=== PATIENT | female | born 1955 | race Caucasian/White ===

== ENCOUNTER 2017-04-14 10:35 | Emergency (ER) | payer MEDICAID ==
[~2017-04-14] VITALS: Ht 160 cm; Wt 68.0 kg
[~2017-04-14 10:35] MED LIST: ALBU8.5H5 INH; ATEN100T PO; DOXY100T PO; FLUT1DIS3 INH; GABA-826 PO; HYDR25TA6 PO; LISI40TA PO; METF10002 PO; METH-356 PO; PRED10TA PO
[2017-04-14] MEDS ORDERED: IBUPROFEN 200 MG TABLET PO ONE (12:30)
[2017-04-14] MEDS ORDERED: OXYcodone/APAP 5/325MG TABLET PO ONE (12:30)
[2017-04-14] MEDS ORDERED: OXYcodone/APAP 5/325MG TABLET ONE (12:42)
[2017-04-14] MEDS ORDERED: IBUPROFEN 200 MG TABLET ONE (12:42)
[2017-04-14 12:46] VITALS: BP 152/90
== END 2017-04-14 13:01 | disposition home or self-care (01) ==
LOC: ED 12:40
DX: S83.91XA Sprain of unspecified site of right knee, initial encounter (principal); S93.401A Sprain of unspecified ligament of right ankle, initial encounter; E11.9 Type 2 diabetes mellitus without complications; I10 Essential (primary) hypertension; F17.200 Nicotine dependence, unspecified, uncomplicated; M06.9 Rheumatoid arthritis, unspecified; M79.7 Fibromyalgia; W19.XXXA Unspecified fall, initial encounter; Y93.89 Activity, other specified; Y92.89 Other specified places as the place of occurrence of the external cause; Y99.8 Other external cause status
CPT/HCPCS: 99283

== ENCOUNTER 2017-10-03 00:33 | Emergency (ER) | payer MEDICAID ==
[~2017-10-03] VITALS: Ht 160 cm; Wt 63.0 kg
[2017-10-03 01:20] LABS: BASOPHILS # (AUTO) 0.03 x10^3/uL (0-0.1); BASOPHILS % (AUTO) 0 % (0-1); EOSINOPHILS # (AUTO) 0.04 x10^3/uL (0-0.4); EOSINOPHILS % (AUTO) 1 % (1-7); LYMPHOCYTES # (AUTO) 1.73 x10^3/uL (1-3.4); LYMPHOCYTES % (AUTO) 20 % (22-44); MD NO; MEAN CORPUSCULAR HEMOGLOBIN 28.6 pg (27.0-34.8); MEAN CORPUSCULAR VOLUME 86.9 fL (80-100); MEAN PLATELET VOLUME 10.9 fL (7.4-10.4); MONOCYTES # (AUTO) 0.72 x10^3/uL (0.2-0.8); MONOCYTES % (AUTO) 9 % (2-9); NEUTROPHILS # (AUTO) 5.97 x10^3/uL (1.8-6.8); NEUTROPHILS % (AUTO) 70 % (42-75); PLATELET COUNT 151 x10^3/uL (130-400); RED BLOOD COUNT 4.67 x10^6/uL (3.82-5.3); RED CELL DISTRIBUTION WIDTH 13.7 % (9.6-15.2)
[2017-10-03] MEDS ORDERED: HYDROcodone/APAP 5/325 TABLET ONE (01:21)
[2017-10-03 01:30] LABS: ALANINE AMINOTRANSFERASE 22 U/L (12-78); ALBUMIN 2.9 g/dL (3.4-5.0); ANION GAP 8 mmol/L (5-15); CALCIUM 8.5 mg/dL (8.5-10.1); CHLORIDE 102 mmol/L (98-107); CREATININE 0.62 mg/dL (0.55-1.02)
[2017-10-03] MEDS ORDERED: HYDROcodone/APAP 5/325 TABLET PO ONE (01:30)
[2017-10-03 01:32] LABS: ALKALINE PHOSPHATASE 90 U/L (45-117); BILIRUBIN,TOTAL 0.3 mg/dL (0.2-1.0); TOTAL PROTEIN 6.9 g/dL (6.4-8.2)
[2017-10-03 02:22] VITALS: BP 144/73
== END 2017-10-03 02:23 | disposition home or self-care (01) ==
LOC: ED 02:17
DX: R00.2 Palpitations (principal); Z72.9 Problem related to lifestyle, unspecified; E11.9 Type 2 diabetes mellitus without complications; I10 Essential (primary) hypertension; Z79.84 Long term (current) use of oral hypoglycemic drugs; M06.9 Rheumatoid arthritis, unspecified; Z59.0 Homelessness
CPT/HCPCS: 36415; 71045; 80053; 85025; 93005; 99285

== ENCOUNTER 2017-11-23 20:08 | Emergency (ER) | payer MEDICAID ==
[~2017-11-23] VITALS: Ht 160 cm; Wt 61.9 kg
[2017-11-23 20:10] VITALS: BP 165/83
== END 2017-11-23 21:48 | disposition home or self-care (01) ==
LOC: ED 21:21
DX: J20.9 Acute bronchitis, unspecified (principal); I10 Essential (primary) hypertension; E11.9 Type 2 diabetes mellitus without complications; M79.7 Fibromyalgia; M06.9 Rheumatoid arthritis, unspecified; F17.210 Nicotine dependence, cigarettes, uncomplicated
CPT/HCPCS: 71046; 99284

== ENCOUNTER 2018-01-13 14:07 | Emergency (ER) | payer MEDICAID ==
[~2018-01-13] VITALS: Ht 160 cm; Wt 70.0 kg
[2018-01-13 14:08] VITALS: BP 164/94
[2018-01-13] MEDS ORDERED: FLUORESCEIN OPHTHALMIC 1 MG STRIP EACHEYE ONE (14:30)
[2018-01-13] MEDS ORDERED: PROPARACAINE OPHTH 0.5%, 15ML EACHEYE ONE (14:30)
[2018-01-13] MEDS ORDERED: FLUORESCEIN OPHTHALMIC 1 MG STRIP ONE (15:55)
[2018-01-13] MEDS ORDERED: PROPARACAINE OPHTH 0.5%, 15ML ONE (15:55)
== END 2018-01-13 17:20 | disposition home or self-care (01) ==
LOC: ED 17:09
DX: H10.021 Other mucopurulent conjunctivitis, right eye (principal); H57.11 Ocular pain, right eye; H54.7 Unspecified visual loss; I10 Essential (primary) hypertension; F17.200 Nicotine dependence, unspecified, uncomplicated; E11.9 Type 2 diabetes mellitus without complications; M06.9 Rheumatoid arthritis, unspecified
CPT/HCPCS: 99283

== ENCOUNTER 2019-08-13 20:40 | Inpatient (IN) | payer MEDICAID ==
[~2019-08-13] VITALS: Ht 162.6 cm; Wt 59.0 kg
[~2019-08-13 20:40] MED LIST changes: -METH-356 PO; +METH10TA2 PO
--- NOTE | 2019-08-13 20:59 | NUR ---
PT REFUSING TO GET INTO A GOWN. PT REQUESTING MULTIPLE WARM BLANKETS. PT INFORMED SHE HAS A FEVER AND WARM BLANKETS WILL MAKE HER CONDITION WORSE. PT REFUSING TO WEAR A MASK AND IS FREQUENTLY COUGHING AND NOT COVERING HER MOUTH.
[2019-08-13] MEDS ORDERED: ACETAMINOPHEN 500 MG TABLET ONE (21:05)
--- NOTE | 2019-08-13 21:14 | NUR ---
PT VERY ARGUMENTATIVE AND REQUIRING IN DEPTH ENCOURAGEMENT TO ALLOW EACH INTERVENTION. PT VERY DEMANDING. PT NOT RECEPTIVE IN THE LEAST TO EDUCATION ABOUT NOT COVERING HERSELF WITH BLANKETS DUE TO HER FEVER.
[2019-08-13 21:25] LABS: BASOPHILS # (AUTO) 0.01 x10^3/uL (0-0.1); BASOPHILS % (AUTO) 0 % (0-1); EOSINOPHILS % (AUTO) 0 % (1-7); LYMPHOCYTES # (AUTO) 0.88 x10^3/uL (1-3.4); LYMPHOCYTES % (AUTO) 10 % (22-44); MD NO; MEAN CORPUSCULAR HEMOGLOBIN 28.8 pg (27.0-34.8); MEAN CORPUSCULAR HGB CONC 32.5 g/dL (32.4-35.8); MEAN CORPUSCULAR VOLUME 88.4 fL (80-100); MEAN PLATELET VOLUME 10.6 fL (7.4-10.4); MONOCYTES % (AUTO) 4 % (2-9); NEUTROPHILS # (AUTO) 7.98 x10^3/uL (1.8-6.8); NEUTROPHILS % (AUTO) 86 % (42-75); PLATELET COUNT 149 x10^3/uL (130-400); RED BLOOD COUNT 4.73 x10^6/uL (3.82-5.3); RED CELL DISTRIBUTION WIDTH 13.8 % (9.6-15.2)
[2019-08-13] MEDS ORDERED: ACETAMINOPHEN 500 MG TABLET PO ONE (21:30)
[2019-08-13 21:37] LABS: ALBUMIN 2.4 g/dL (3.4-5.0); ANION GAP 5 mmol/L (5-15); CALCIUM 8.7 mg/dL (8.5-10.1); CHLORIDE 100 mmol/L (98-107); CREATININE 0.67 mg/dL (0.55-1.02)
[2019-08-13 21:40] LABS: TROPONIN I < 0.015 ng/mL (0.000-0.045)
--- NOTE | 2019-08-13 21:54 | NUR ---
PT ASSSISTED TO RESTROOM, PT DID NOT FLUSH, PT DID NOT WASH HER HANDS PER THIS RN'S REQUEST. PT BACK TO ROOM AND NOW REFUSING ALL MONITORING. POC DISCUSSED. PT NOT RECEPTIVE
[2019-08-13] MEDS ORDERED: AZITHROMYCIN 500 MG TABLET ONE (21:56)
[2019-08-13] MEDS ORDERED: AZITHROMYCIN 500 MG TABLET PO ONE (22:00)
--- NOTE | 2019-08-13 22:07 | NUR ---
PT MEDICATED PER NOV. PT DEMANDING WATER DESPITE HAVING A CUP OF WATER IN HER HAND. PT ABLE TO SWALLOW ABX WITH EASE. PT TAKING MUCH ENCOURAGEMENT, AGAIN, TO WEAR HER MASK. PT DID ALLOW TO BE RECONNECTED TO PULSE OX.
--- NOTE | 2019-08-13 22:20 | NUR ---
PT BLOWING HER NOSE AND THROWING THE TISSUES ON THE FLOOR DESPITE BEING GIVEN AN EMESIS BAG AND EDUCATED TO PLACE DIRTY TISSUES IN BAG.
[2019-08-13] MEDS ORDERED: CEFTRIAXONE PMX 1GM/50ML 50 ML IV ONE ×2 (22:30→23:30)
--- NOTE | 2019-08-13 22:42 | NUR ---
PT REFUSING IV, PT REFUSING LAB DRAW, PT REFUSING TO COMPLY WITH REGISTRATIONS QUESTIONS. CALMING MEASURES UNSUCCESSFUL. PT STATES SHE NEEDS TIME TO CATCH HER BREATH HOWEVER IS SPEAKING IN LENGTHY SENTENCES. POC DISCUSSED. PT STATES "YOU JUST LIKE MAKING PEOPLE MISERABLE" POC DISCUSSED. PT REMAINS UNCOOPERATIVE WITH CARE.
[2019-08-13] MEDS ORDERED: CEFTRIAXONE PMX 1GM/50ML 50 ML ONE (22:44)
--- NOTE | 2019-08-13 22:47 | NUR ---
PT AGAIN NOT WEARING MASK. WHEN ASKED WHERE SHE PUT IT SHE STATES "I WIPED MY ASS WITH IT".
--- NOTE | 2019-08-13 22:49 | NUR ---
EDTA STARTED IV. ABX NOW INFUSING. ADMITTING MD AT BEDSIDE.
[2019-08-13] MEDS ORDERED: PROMETHAZINE 25 MG/ML, 1ML IM PRN (23:00)
[2019-08-13] MEDS ORDERED: ONDANSETRON 2MG/ML, 2ML IVPush PRN (23:00)
[2019-08-13] MEDS ORDERED: ACETAMINOPHEN 325 MG TABLET PO PRN (23:00)
[2019-08-13] MEDS ORDERED: ONDANSETRON ODT 4 MG PO PRN (23:00)
[2019-08-13] MEDS ORDERED: morphine SULFATE 10 MG/ML, 1ML IVPush PRN (23:00)
[2019-08-13] MEDS: HEPARIN 5,000 UNITS/ML, 1ML SQ SCH (23:00)
[2019-08-13] MEDS ORDERED: DOCUSATE 100 MG CAPSULE PO PRN (23:00)
[2019-08-13] MEDS: NICOTINE 7 MG/24 HR PATCH.TD24 TD SCH (23:00)
[2019-08-13] MEDS ORDERED: POLYETHYLENE GLYCOL 17 GM PACKET PO PRN (23:00)
[2019-08-13] MEDS ORDERED: BISACODYL 10 MG SUPP PR PRN (23:00)
[2019-08-13] MEDS ORDERED: hydrALAzine 20 MG/ML, 1ML IVPush PRN (23:00)
[2019-08-13] MEDS ORDERED: LABETALOL 5MG/ML, 20ML IVPush PRN (23:00)
[2019-08-13 23:30] VITALS: BP 135/74
[2019-08-13] MEDS: LISINOPRIL 10 MG TABLET PO SCH (23:30)
[2019-08-13] MEDS: INSULIN LISPRO 100 UNITS/ML, PEN SQ-INSULIN SCH (23:30)
[2019-08-13] MEDS: GUAIFENESIN ER 600 MG TABLET PO SCH (23:30)
[2019-08-13] MEDS ORDERED: FUROSEMIDE 20 MG/2 ML IV ONE (23:30)
[2019-08-13 23:42] LABS: HEMOGLOBIN A1C 7.6 % (4.2-6.3)
[2019-08-13 23:44] LABS: FREE T4 (FREE THYROXINE) 1.59 ng/dL (0.76-1.46)
[2019-08-14 01:17] VITALS: BP 127/69
[2019-08-14] MEDS ORDERED: ALBUTEROL SULFATE 2.5 MG/3 ML NPPB PRN (01:30)
[2019-08-14 06:04] LABS: BASOPHILS # (AUTO) 0.06 x10^3/uL (0-0.1); BASOPHILS % (AUTO) 1 % (0-1); EOSINOPHILS % (AUTO) 0 % (1-7); LYMPHOCYTES # (AUTO) 1.12 x10^3/uL (1-3.4); LYMPHOCYTES % (AUTO) 11 % (22-44); MD NO; MEAN CORPUSCULAR HEMOGLOBIN 28.7 pg (27.0-34.8); MEAN CORPUSCULAR HGB CONC 32.5 g/dL (32.4-35.8); MEAN CORPUSCULAR VOLUME 88.2 fL (80-100); MEAN PLATELET VOLUME 10.9 fL (7.4-10.4); MONOCYTES # (AUTO) 0.44 x10^3/uL (0.2-0.8); MONOCYTES % (AUTO) 4 % (2-9); NEUTROPHILS # (AUTO) 8.36 x10^3/uL (1.8-6.8); NEUTROPHILS % (AUTO) 84 % (42-75); PLATELET COUNT 136 x10^3/uL (130-400); RED BLOOD COUNT 4.67 x10^6/uL (3.82-5.3); RED CELL DISTRIBUTION WIDTH 13.8 % (9.6-15.2)
[2019-08-14 06:12] LABS: CHLORIDE 103 mmol/L (98-107)
[2019-08-14 06:17] LABS: ALANINE AMINOTRANSFERASE 14 U/L (12-78); ALBUMIN 2.3 g/dL (3.4-5.0); ALKALINE PHOSPHATASE 90 U/L (45-117); ANION GAP 6 mmol/L (5-15); BILIRUBIN,TOTAL 0.3 mg/dL (0.2-1.0); CHOL/HDL RATIO 4.7; CHOLESTEROL, TOTAL 89 mg/dL (140-239); CREATININE 0.55 mg/dL (0.55-1.02); HDL CHOL % 21 % (28-40); HDL CHOLESTEROL (DIRECT) 19 mg/dL (40-60); LDL CHOLESTEROL,CALCULATED 53 mg/dL (54-169); LDL/HDL RATIO 2.8 (0.5-3.0); TOTAL PROTEIN 7.1 g/dL (6.4-8.2); TRIGLYCERIDES 85 mg/dL (50-200); VLDL CHOLESTEROL 17 mg/dL (0-25)
[2019-08-14] MEDS: INSULIN LISPRO 100 UNITS/ML, PEN SQ-INSULIN SCH ×4 (07:00→21:00)
[2019-08-14] MEDS: HEPARIN 5,000 UNITS/ML, 1ML SQ SCH ×3 (07:00→23:00)
[2019-08-14] MEDS: LISINOPRIL 10 MG TABLET PO SCH (08:01)
[2019-08-14] MEDS: GUAIFENESIN ER 600 MG TABLET PO SCH ×2 (08:01→21:00)
[2019-08-14] MEDS: CEFTRIAXONE PMX 2GM/50ML 50 ML IV SCH (21:34)
[2019-08-14] MEDS: AZITHROMYCIN 500 MG in SODIUM CHLORIDE 0.9% 250 ML IV SCH (22:22)
[2019-08-14] MEDS: NICOTINE 7 MG/24 HR PATCH.TD24 TD SCH (23:00)
[2019-08-15] MEDS: OXYcodone IR 5MG TABLET PO PRN ×3 (02:56→19:08)
[2019-08-15] MEDS: HEPARIN 5,000 UNITS/ML, 1ML SQ SCH ×3 (07:00→23:00)
[2019-08-15] MEDS: INSULIN LISPRO 100 UNITS/ML, PEN SQ-INSULIN SCH ×4 (07:00→21:00)
[2019-08-15 08:20] VITALS: BP 141/79
[2019-08-15] MEDS: GUAIFENESIN ER 600 MG TABLET PO SCH ×2 (08:36→21:00)
[2019-08-15] MEDS: LISINOPRIL 10 MG TABLET PO SCH (08:37)
[2019-08-15 13:54] VITALS: BP 148/78
[2019-08-15] MEDS ORDERED: ACETAMINOPHEN 325 MG TABLET PO PRN (15:00)
[2019-08-15 17:50] VITALS: BP 166/82
[2019-08-15 19:45] VITALS: BP 166/82
[2019-08-15] MEDS: CEFTRIAXONE PMX 2GM/50ML 50 ML IV SCH (20:34)
[2019-08-15] MEDS: AZITHROMYCIN 500 MG in SODIUM CHLORIDE 0.9% 250 ML IV SCH (21:57)
[2019-08-15] MEDS: NICOTINE 7 MG/24 HR PATCH.TD24 TD SCH (23:00)
[2019-08-16 01:23] VITALS: BP 191/97
[2019-08-16] MEDS: OXYcodone IR 5MG TABLET PO PRN ×4 (01:36→22:09)
[2019-08-16 02:44] VITALS: BP 170/97
[2019-08-16 05:27] LABS: CHLORIDE 99 mmol/L (98-107); MEAN CORPUSCULAR HEMOGLOBIN 28.6 pg (27.0-34.8); MEAN CORPUSCULAR VOLUME 89.5 fL (80-100); PLATELET COUNT 272 x10^3/uL (130-400); RED BLOOD COUNT 4.98 x10^6/uL (3.82-5.3); RED CELL DISTRIBUTION WIDTH 13.7 % (9.6-15.2)
[2019-08-16 05:35] LABS: ALANINE AMINOTRANSFERASE 17 U/L (12-78); ALBUMIN 2.4 g/dL (3.4-5.0); ALKALINE PHOSPHATASE 106 U/L (45-117); ANION GAP 6 mmol/L (5-15); BILIRUBIN,TOTAL 0.4 mg/dL (0.2-1.0); CALCIUM 9.2 mg/dL (8.5-10.1); CREATININE 0.69 mg/dL (0.55-1.02); TOTAL PROTEIN 7.8 g/dL (6.4-8.2)
[2019-08-16 06:04] LABS: MD YES
[2019-08-16 06:07] LABS: BAND#(MANUAL) 0.41 x10^3/uL; BANDS%(MANUAL) 3 % (0-7); EOS#(MANUAL) 0.14 x10^3/uL (0.0-0.4); EOS% (MANUAL) 1 % (1-7); LYMPH#(MANUAL) 2.18 x10^3/uL (1-3.4); LYMPHS% (MANUAL) 16 % (22-44); MONOS#(MANUAL) 1.09 x10^3/uL (0.3-2.7); MONOS% (MANUAL) 8 % (2-9); SEG#(MANUAL) 9.79 x10^3/uL (1.8-6.8); SEGS% (MANUAL) 72 % (42-75)
[2019-08-16 06:08] LABS: <PLATELET ESTIMATE> ADEQUATE; <PLT MORPHOLOGY> NORMAL PLT MORPH
[2019-08-16] MEDS: AMLODIPINE 5 MG TABLET PO SCH ×2 (06:30→07:43)
[2019-08-16] MEDS: INSULIN LISPRO 100 UNITS/ML, PEN SQ-INSULIN SCH ×4 (07:00→21:00)
[2019-08-16] MEDS: HEPARIN 5,000 UNITS/ML, 1ML SQ SCH ×3 (07:00→23:00)
[2019-08-16] MEDS: CHLORTHALIDONE 25 MG TABLET PO SCH ×2 (07:43→08:00)
[2019-08-16 07:50] VITALS: BP 132/74
[2019-08-16] MEDS: GUAIFENESIN ER 600 MG TABLET PO SCH ×2 (08:00→21:00)
[2019-08-16] MEDS: LISINOPRIL 10 MG TABLET PO SCH (08:00)
[2019-08-16 13:11] VITALS: BP 127/69
[2019-08-16] MEDS: methylPREDNISolone SOD SUCC 125 MG/2 ML IVPush SCH ×2 (14:30→20:30)
[2019-08-16 20:56] VITALS: BP 146/77
[2019-08-16] MEDS: CEFTRIAXONE PMX 2GM/50ML 50 ML IV SCH ×2 (21:00→21:34)
[2019-08-16] MEDS: AZITHROMYCIN 500 MG in SODIUM CHLORIDE 0.9% 250 ML IV SCH (22:00)
[2019-08-16] MEDS: NICOTINE 7 MG/24 HR PATCH.TD24 TD SCH (23:00)
[2019-08-17 00:58] VITALS: BP 161/80
[2019-08-17] MEDS: CEFTRIAXONE PMX 2GM/50ML 50 ML IV SCH (02:02)
[2019-08-17] MEDS: methylPREDNISolone SOD SUCC 125 MG/2 ML IVPush SCH ×4 (02:30→21:00)
[2019-08-17] MEDS: AZITHROMYCIN 500 MG in SODIUM CHLORIDE 0.9% 250 ML IV SCH (02:41)
[2019-08-17 05:52] LABS: BASOPHILS # (AUTO) 0.11 x10^3/uL (0-0.1); BASOPHILS % (AUTO) 1 % (0-1); EOSINOPHILS # (AUTO) 0.05 x10^3/uL (0-0.4); EOSINOPHILS % (AUTO) 1 % (1-7); LYMPHOCYTES % (AUTO) 17 % (22-44); MD NO; MEAN CORPUSCULAR HEMOGLOBIN 28.9 pg (27.0-34.8); MEAN CORPUSCULAR HGB CONC 32.3 g/dL (32.4-35.8); MEAN CORPUSCULAR VOLUME 89.2 fL (80-100); MEAN PLATELET VOLUME 10.3 fL (7.4-10.4); MONOCYTES # (AUTO) 0.39 x10^3/uL (0.2-0.8); MONOCYTES % (AUTO) 5 % (2-9); NEUTROPHILS # (AUTO) 6.56 x10^3/uL (1.8-6.8); NEUTROPHILS % (AUTO) 76 % (42-75); PLATELET COUNT 219 x10^3/uL (130-400); RED BLOOD COUNT 4.56 x10^6/uL (3.82-5.3); RED CELL DISTRIBUTION WIDTH 13.8 % (9.6-15.2)
[2019-08-17 06:07] LABS: ANION GAP 4 mmol/L (5-15); CALCIUM 8.9 mg/dL (8.5-10.1); CHLORIDE 105 mmol/L (98-107); CREATININE 0.54 mg/dL (0.55-1.02)
[2019-08-17] MEDS: INSULIN LISPRO 100 UNITS/ML, PEN SQ-INSULIN SCH ×4 (07:00→21:00)
[2019-08-17] MEDS: HEPARIN 5,000 UNITS/ML, 1ML SQ SCH ×3 (07:00→21:17)
[2019-08-17 08:34] VITALS: BP 159/81
[2019-08-17] MEDS: metFORMIN 500 MG TABLET PO SCH ×2 (08:38→16:16)
[2019-08-17] MEDS: GUAIFENESIN ER 600 MG TABLET PO SCH ×3 (08:38→21:43)
[2019-08-17] MEDS: AMLODIPINE 5 MG TABLET PO SCH (08:39)
[2019-08-17] MEDS: OXYcodone IR 5MG TABLET PO PRN ×3 (08:39→21:43)
[2019-08-17] MEDS: LISINOPRIL 10 MG TABLET PO SCH (08:39)
[2019-08-17 13:10] VITALS: BP 138/87
[2019-08-17] MEDS: NICOTINE 7 MG/24 HR PATCH.TD24 TD SCH (21:00)
[2019-08-18] MEDS: CEFTRIAXONE PMX 2GM/50ML 50 ML IV SCH (01:48)
[2019-08-18] MEDS: OXYcodone IR 5MG TABLET PO PRN ×4 (01:51→23:57)
[2019-08-18] MEDS: methylPREDNISolone SOD SUCC 125 MG/2 ML IVPush SCH ×4 (01:59→21:00)
[2019-08-18] MEDS: AZITHROMYCIN 500 MG in SODIUM CHLORIDE 0.9% 250 ML IV SCH (02:40)
[2019-08-18] MEDS: HEPARIN 5,000 UNITS/ML, 1ML SQ SCH ×3 (05:23→22:00)
[2019-08-18] MEDS: INSULIN LISPRO 100 UNITS/ML, PEN SQ-INSULIN SCH ×4 (07:00→21:00)
[2019-08-18 08:53] VITALS: BP 137/78
[2019-08-18] MEDS: GUAIFENESIN ER 600 MG TABLET PO SCH ×2 (08:58→21:37)
[2019-08-18] MEDS: AMLODIPINE 5 MG TABLET PO SCH (08:58)
[2019-08-18] MEDS: LISINOPRIL 10 MG TABLET PO SCH (08:58)
[2019-08-18] MEDS: metFORMIN 500 MG TABLET PO SCH ×2 (09:02→17:37)
[2019-08-18 17:34] VITALS: BP 167/84
[2019-08-18] MEDS: AMPICILLIN/SULBACTAM 3 GM in SODIUM CHLORIDE 0.9% 100 ML IV SCH ×2 (17:37→23:33)
[2019-08-18] MEDS: NICOTINE 7 MG/24 HR PATCH.TD24 TD SCH (21:00)
[2019-08-19 00:16] VITALS: BP 165/81
[2019-08-19] MEDS: CEFTRIAXONE PMX 2GM/50ML 50 ML IV SCH (01:50)
[2019-08-19] MEDS: AZITHROMYCIN 500 MG in SODIUM CHLORIDE 0.9% 250 ML IV SCH (02:58)
[2019-08-19] MEDS: methylPREDNISolone SOD SUCC 125 MG/2 ML IVPush SCH ×2 (03:00→09:00)
[2019-08-19] MEDS: AMPICILLIN/SULBACTAM 3 GM in SODIUM CHLORIDE 0.9% 100 ML IV SCH (05:46)
[2019-08-19] MEDS: HEPARIN 5,000 UNITS/ML, 1ML SQ SCH ×2 (06:00→12:23)
[2019-08-19] MEDS: INSULIN LISPRO 100 UNITS/ML, PEN SQ-INSULIN SCH ×2 (07:00→10:02)
[2019-08-19 08:46] VITALS: BP 153/88
[2019-08-19] MEDS ORDERED: AMOXICILLIN/CLAV 875-125MG TABLET PO SCH (09:00)
[2019-08-19] MEDS ORDERED: DOXYCYCLINE 100MG TABLET PO SCH (09:00)
[2019-08-19 09:25] LABS: BASOPHILS # (AUTO) 0.04 x10^3/uL (0-0.1); BASOPHILS % (AUTO) 1 % (0-1); EOSINOPHILS # (AUTO) 0.06 x10^3/uL (0-0.4); EOSINOPHILS % (AUTO) 1 % (1-7); LYMPHOCYTES # (AUTO) 1.39 x10^3/uL (1-3.4); LYMPHOCYTES % (AUTO) 16 % (22-44); MD NO; MEAN CORPUSCULAR HEMOGLOBIN 28.3 pg (27.0-34.8); MEAN CORPUSCULAR HGB CONC 32.5 g/dL (32.4-35.8); MEAN CORPUSCULAR VOLUME 87.2 fL (80-100); MEAN PLATELET VOLUME 9.4 fL (7.4-10.4); MONOCYTES # (AUTO) 0.31 x10^3/uL (0.2-0.8); MONOCYTES % (AUTO) 4 % (2-9); NEUTROPHILS # (AUTO) 7.17 x10^3/uL (1.8-6.8); NEUTROPHILS % (AUTO) 80 % (42-75); PLATELET COUNT 240 x10^3/uL (130-400); RED BLOOD COUNT 4.78 x10^6/uL (3.82-5.3); RED CELL DISTRIBUTION WIDTH 13.5 % (9.6-15.2)
[2019-08-19 09:37] LABS: ANION GAP 7 mmol/L (5-15); CALCIUM 8.6 mg/dL (8.5-10.1); CHLORIDE 103 mmol/L (98-107); CREATININE 0.55 mg/dL (0.55-1.02)
[2019-08-19] MEDS ORDERED: DOXYCYCLINE 100MG CAP ONE (09:47)
[2019-08-19] MEDS: metFORMIN 500 MG TABLET PO SCH (10:00)
[2019-08-19] MEDS: AMLODIPINE 5 MG TABLET PO SCH (10:00)
[2019-08-19] MEDS: GUAIFENESIN ER 600 MG TABLET PO SCH (10:00)
[2019-08-19] MEDS: LISINOPRIL 10 MG TABLET PO SCH (10:00)
[2019-08-19] MEDS: OXYcodone IR 5MG TABLET PO PRN ×2 (10:06→10:24)
[2019-08-19] MEDS ORDERED: METF500T PO (13:34)
[2019-08-19] MEDS ORDERED: GUAI600T31 PO (13:34)
[2019-08-19] MEDS ORDERED: AMOX1TAB12 PO (13:34)
[2019-08-19] MEDS ORDERED: AMLO-150 PO (13:34)
[2019-08-19] MEDS ORDERED: DOXY100T PO (13:34)
[2019-08-19] MEDS ORDERED: LISI-167 PO (13:34)
== END 2019-08-19 13:57 | disposition home or self-care (01) | DRG 133 ==
LOC: ED 22:31 → EDIP 22:54 → 3N 23:20
PROVIDERS: ADMIT Internal Medicine; ATTEND Hospitalist
DX: J96.01 Acute respiratory failure with hypoxia (principal); J18.9 Pneumonia, unspecified organism; E11.65 Type 2 diabetes mellitus with hyperglycemia; J44.0 Chronic obstructive pulmonary disease with (acute) lower respiratory infection; J44.1 Chronic obstructive pulmonary disease with (acute) exacerbation; F17.210 Nicotine dependence, cigarettes, uncomplicated; I10 Essential (primary) hypertension; I16.0 Hypertensive urgency; M06.9 Rheumatoid arthritis, unspecified; M79.7 Fibromyalgia; Z90.710 Acquired absence of both cervix and uterus; Z91.14 Patient's other noncompliance with medication regimen
CPT/HCPCS: 36415; 71045; 80048; 80053; 80061; 82040; 82962; 83036; 83735; 84100; 84145; 84439; 84443; 84484; 85025; 87040; 93005; 96374; G0378; J0295; J0456; J0696; J0360; J7050

== ENCOUNTER 2019-08-27 11:27 | Emergency (ER) | payer MEDICAID ==
[~2019-08-27] VITALS: Ht 162.6 cm; Wt 65.3 kg
[~2019-08-27 11:27] MED LIST changes: +AMLO-150 PO; +AMOX1TAB12 PO; +GUAI600T31 PO; +LISI-167 PO; +METF500T PO
--- NOTE | 2019-08-27 11:40 | NUR ---
NO ANSWER IN LOBBY
[2019-08-27 11:51] VITALS: BP 153/101
--- NOTE | 2019-08-27 12:00 | NUR ---
PT refused to put gown on
--- NOTE | 2019-08-27 12:07 | NUR ---
pt in room without gown on. pt educatated that provider may not see her right away if gown is not on. when pt asked to put on gown, pt replied, "i have other appointments i need to be at. i need to go." pt educated on alternatives to ED, including pcp and urgent care. pt to wa deskw tih all belongings prior to being seen.
== END 2019-08-27 12:15 | disposition left against medical advice (07) ==
LOC: ED 12:09
DX: Z53.21 Procedure and treatment not carried out due to patient leaving prior to being seen by health care provider (principal)

== ENCOUNTER 2019-09-13 04:30 | Emergency (ER) | payer MEDICAID ==
[~2019-09-13] VITALS: Ht 160 cm; Wt 64.0 kg
[2019-09-13 04:34] VITALS: BP 188/79
--- NOTE | 2019-09-13 05:24 | NUR ---
Discharge instructions given. All questions and concerns addressed. Patient ambulatory with a steady gait. Belongings with patient.
== END 2019-09-13 05:25 | disposition home or self-care (01) ==
LOC: ED 05:20
DX: I10 Essential (primary) hypertension (principal); Z76.0 Encounter for issue of repeat prescription; E11.9 Type 2 diabetes mellitus without complications; M06.9 Rheumatoid arthritis, unspecified
CPT/HCPCS: 99283